=== PATIENT | male | born 1945 | race Caucasian/White ===

== ENCOUNTER 2022-07-16 05:17 | Emergency (ER) | payer OTHER, MEDICARE ==
[2022-07-16] MEDS ORDERED: fentaNYL 100 MCG/2 ML SDV IVPUSH ONE (05:34)
[2022-07-16] MEDS: fentaNYL 100 MCG/2 ML SDV ONE ×2 (05:37→08:04)
[2022-07-16] MEDS ORDERED: Heparin Sodium 5,000 Units/ML Vial IVPUSH ONE (05:43)
[2022-07-16] MEDS ORDERED: Heparin Sodium/0.45% NaCl 500 ML IV SCH (05:45)
[2022-07-16 05:59] LABS: ESTIMATED GFR 39 mL/min (>60)
[2022-07-16] MEDS ORDERED: Metoprolol Tartrate 5 MG/5 ML SDV IVPUSH ONE ×3 (06:00→06:01)
[2022-07-16] MEDS ORDERED: Metoprolol Tartrate 5 MG/5 ML SDV ONE (06:01)
[2022-07-16 06:28] LABS: BASE EXCESS VENOUS,POC -10 mmol/L (-2 - 3+); PCO2 VENOUS,POC 52 mmHg (41-51); PH VENOUS,POC 7.17 pH Units (7.32-7.43)
[2022-07-16] MEDS ORDERED: Sodium Bicarbonate 8.4% 50 MEQ/50 ML Syringe IVPUSH ONE (06:34)
[2022-07-16] MEDS ORDERED: Piperacillin/Tazobactam 4.5 GM in Sodium Chloride 0.9% 100 ML IV STA (06:35)
[2022-07-16] MEDS ORDERED: Midazolam 1 MG/ML 2 ML SDV IVPUSH ONE (06:42)
[2022-07-16] MEDS ORDERED: Midazolam 1 MG/ML 2 ML SDV ONE (06:42)
[2022-07-16] MEDS ORDERED: VANCOmycin 1.5 GM/300 ML 1.5 GM in Premix Bag 1 BAG IV ONE (06:46)
== END 2022-07-16 07:10 ==
LOC: FB.ED 05:17
DX: I24.9 Acute ischemic heart disease, unspecified (principal); I21.9 Acute myocardial infarction, unspecified; I50.9 Heart failure, unspecified; E87.29 Other acidosis; J81.1 Chronic pulmonary edema
CPT/HCPCS: 31500; 36415; 71045; 80053; 83605; 83880; 84484; 85025; 85610; 85730; 87040; 87077; 87186; 92950; 93005; 96365; 96367; 96375; 96376; 99285; J1644; J2250; J2543; J3010; J3370; J3490